=== PATIENT | female | born 1930 | race Caucasian/White ===

== ENCOUNTER 2019-09-25 06:20 | Inpatient (IN) | payer MEDICARE, BC ==
--- NOTE | 2019-09-25 06:39 | EDM.PDOC ---
<OzielJosue Gage - Last Filed: 09/25/19 06:50> ED HPI GENERAL MEDICAL PROBLEM - General Chief Complaint: Lower Extremity Injury/Pain Stated Complaint: [facility] Time Seen by Provider: 09/25/19 06:26 Source of Information: Reports: Patient History Limitations: Reports: Altered Mental Status (Dementia) - History of Present Illness INITIAL COMMENTS - FREE TEXT/NARRATIVE: Mrs. Gray is a pleasantly demented 89-year-old woman, a resident of [facility], who is brought to the ED by EMS after she apparently tripped and fell, injuring her right hip area. The patient is unable to tell us what time it occurred. She indicates that she has pain in her right buttock area , not the anterior or lateral hip. She does not recall actually falling, but agreed that she might have fallen backwards, onto her buttocks. No other apparent injury. EMS reported that the patient refused an IV or pain medication. Unfortunately, the patient has only been to this ED once, in 2013, and we therefore have no prior medical records on her. [facility] did not send any medical information with EMS, and due to the patient's dementia, she is unable to provide a meaningful past medical history. Aidee MAHER has contacted [facility], who will fax medical information to us. Right Pelvic Pain Score (Numeric/FACES): 6 - Related Data Allergies Allergy/AdvReac Type Severity Reaction Status Date / Time No Known Allergies Allergy Verified 09/25/19 06:35 Home Meds: Home Meds Acetaminophen [Tylenol Arthritis] 650 mg PO Q4HR PRN 09/25/19 [History] Aspirin [Low Dose Aspirin EC] 81 mg PO DAILY 09/25/19 [History] Calcium Carbonate/Vitamin D3 [Calcium 500 + Vit D 400] 1 tab PO DAILY 09/25/19 [ History] Carboxymethylcellulose Sodium [Refresh Tears 0.5%] 1 drop EYEBOTH BID 09/25/19 [ History] Diltiazem HCl [Cartia Xt] 120 mg PO DAILY 09/25/19 [History] Pravastatin [Pravachol] 20 mg PO DAILY 09/25/19 [History] Sennosides/Docusate Sodium [Senna Plus Tablet] 1 tab PO DAILY PRN 09/25/19 [ History] Past Medical History Neurological History: Reports: Other (See Below) (Dementia) ED EXAM, GENERAL - Physical Exam Exam: See Below Exam Limited By: No Limitations General Appearance: Alert, WD/WN, No Apparent Distress Eye Exam: Bilateral Eye: EOMI, Normal Inspection Ears: Normal External Exam, Hearing Loss Nose: Normal Inspection Throat/Mouth: Normal Inspection, Normal Lips, Normal Voice, No Airway Compromise Head: Atraumatic, Normocephalic Neck: Normal Inspection, Full Range of Motion Respiratory/Chest: No Respiratory Distress, Lungs Clear, Normal Breath Sounds, No Accessory Muscle Use Cardiovascular: Normal Peripheral Pulses, Regular Rate, Rhythm, No Edema, No Gallop, No JVD, No Murmur, No Rub Peripheral Pulses: 4+: Radial (L), Radial (R) GI/Abdominal: Normal Bowel Sounds, Soft, Non-Tender, No Organomegaly, No Distention, No Abnormal Bruit, No Mass (Female) Exam: Deferred Rectal (Female) Exam: Deferred Back Exam: Normal Inspection, Full Range of Motion, NT Extremities: No Pedal Edema, Normal Capillary Refill, Other (No visible abnormality to the patient's right hip, such as swelling, erythema, ecchymosis, abrasion, or deformity. The patient reports mild tenderness to palpation of the right buttock area, but no tenderness to palpation of the anterior lateral right hip. I was able to flex her right hip to about 90 - she reported some pain, but was able to tolerate the movement. She did not tolerate traction of the right lower extremity reporting pain radiating down her posterior right thigh. Her right lower extremity is not foreshortened compared to the left, and there is no external rotation. Neurovascular status of the right lower extremity is intact.) Neurological: Alert, No Motor/Sensory Deficits, Confused Psychiatric: Normal Affect Skin Exam: Warm, Dry, Intact, Normal Color, No Rash Course - Vital Signs Last Recorded V/S: Last Vital Signs Temp 36.9 C 09/25/19 06:26 Pulse 74 09/25/19 06:26 Resp 18 09/25/19 06:26 BP 158/78 H 09/25/19 06:26 Pulse Ox 85 L 09/25/19 06:26 - Orders/Labs/Meds Orders: Active Orders 24 hr Category Date Time Status EKG Documentation Completion [RC] STAT Care 09/25/19 07:38 Active Hip Min 2V or 3V w Pelvis Rt [CR] Stat Exams 09/25/19 06:31 Taken URINALYSIS W/MICROSCOPIC [UA W/MICROSCOPIC] [URIN] Stat Lab 09/25/19 07:38 Ordered Labs: Laboratory Tests 09/25/19 09/25/19 09/25/19 Range/Units 07:50 07:50 07:50 WBC 17.16 H (3.98-10.04) K/mm3 RBC 4.35 (3.98-5.22) M/mm3 Hgb 12.9 (11.2-15.7) gm/dl Hct 39.6 (34.1-44.9) % MCV 91.0 (79.4-94.8) fl MCH 29.7 (25.6-32.2) pg MCHC 32.6 (32.2-35.5) g/dl RDW Std Deviation 45.1 (36.4-46.3) fL Plt Count 265 (182-369) K/mm3 MPV 9.1 L (9.4-12.3) fl Neutrophils % (Manual) 86 H (40-60) % Band Neutrophils % 4 (0-10) % Lymphocytes % (Manual) 6 L (20-40) % Atypical Lymphs % 0 % Monocytes % (Manual) 3 (2-10) % Eosinophils % (Manual) 1 (0.7-5.8) % Basophils % (Manual) 0 L (0.1-1.2) Platelet Estimate Adequate RBC Morph Comment Normal Sodium 143 (136-145) mEq/L Potassium 3.3 L (3.5-5.1) mEq/L Chloride 105 (98-107) mEq/L Carbon Dioxide 27 (21-32) mEq/L Anion Gap 14.3 (5-15) BUN 51 H (7-18) mg/dL Creatinine 2.2 H (0.55-1.02) mg/dL Est Cr Clr Drug Dosing TNP Estimated GFR (MDRD) 21 (>60) mL/min BUN/Creatinine Ratio 23.2 H (14-18) Glucose 97 (83-115) mg/dL Calcium 9.5 (8.5-10.1) mg/dL Total Bilirubin 0.4 (0.2-1.0) mg/dL AST 31 (15-37) U/L ALT 37 (14-59) U/L Alkaline Phosphatase 60 (46-116) U/L Troponin I < 0.017 (0.00-0.056) ng/mL Total Protein 7.4 (6.4-8.2) g/dl Albumin 3.7 (3.4-5.0) g/dl Globulin 3.7 gm/dL Albumin/Globulin Ratio 1.0 (1-2) Meds: Medications Discontinued Medications Generic Name Dose Route Start Last Admin Trade Name Ronnie PRN Reason Stop Dose Admin Acetaminophen 650 mg 09/25/19 07:42 09/25/19 07:58 Tylenol PO 09/25/19 07:43 650 mg NOW ONE Administration - Re-Assessments/Exams Free Text/Narrative Re-Assessment/Exam: 09/25/19 06:32 I have ordered x-rays of the right hip and pelvis. 09/25/19 07:[address] Hearn, and care of the patient turned over to him at this time, for change of shift. Departure - Departure Disposition: Admitted As Inpatient 66 Clinical Impression: Fracture of right inferior pubic ramus - Discharge Information Referrals: PCP,Unknown [Primary Care Provider] - Forms: ED Department Discharge Sepsis Event Note - Focused Exam Vital Signs: Vital Signs Temp Pulse Resp BP Pulse Ox 09/25/19 06:26 36.9 C 74 18 158/78 H 85 L - My Orders Last 24 Hours: My Active Orders 09/25/19 07:38 EKG Documentation Completion [RC] STAT URINALYSIS W/MICROSCOPIC [UA W/MICROSCOPIC] [URIN] Stat - Assessment/Plan Last 24 Hours: My Active Orders 09/25/19 07:38 EKG Documentation Completion [RC] STAT URINALYSIS W/MICROSCOPIC [UA W/MICROSCOPIC] [URIN] Stat <Ousmane Hearn - Last Filed: 09/25/19 09:56> Review of Systems - Review of Systems Review Of Systems: See Below Constitutional: Reports: No Symptoms Eyes: Reports: No Symptoms Ears: Reports: No Symptoms Nose: Reports: No Symptoms Mouth/Throat: Reports: No Symptoms Respiratory: Reports: No Symptoms Cardiovascular: Reports: No Symptoms GI/Abdominal: Reports: No Symptoms Genitourinary: Reports: No Symptoms Musculoskeletal: Reports: No Symptoms Skin: Reports: No Symptoms Neurological: Reports: Other (She has pre-existing dementia) Psychiatric: Reports: No Symptoms EKG INTERPRETATION EKG Date: 09/25/19 Rhythm: NSR [place]: Normal P-Wave: Present QRS: Other (Service Writer with [facility]) ST-T: Other (Inverted T waves in lead aVL. LV strain type pattern) Comparison: NA - No Prior EKG EKG Interpretation Comments: Abnormal Course - Orders/Labs/Meds Labs: Laboratory Tests 09/25/19 09/25/19 09/25/19 Range/Units 07:50 07:50 07:50 WBC 17.16 H (3.98-10.04) K/mm3 RBC 4.35 (3.98-5.22) M/mm3 Hgb 12.9 (11.2-15.7) gm/dl Hct 39.6 (34.1-44.9) % MCV 91.0 (79.4-94.8) fl MCH 29.7 (25.6-32.2) pg MCHC 32.6 (32.2-35.5) g/dl RDW Std Deviation 45.1 (36.4-46.3) fL Plt Count 265 (182-369) K/mm3 MPV 9.1 L (9.4-12.3) fl Neutrophils % (Manual) 86 H (40-60) % Band Neutrophils % 4 (0-10) % Lymphocytes % (Manual) 6 L (20-40) % Atypical Lymphs % 0 % Monocytes % (Manual) 3 (2-10) % Eosinophils % (Manual) 1 (0.7-5.8) % Basophils % (Manual) 0 L (0.1-1.2) Platelet Estimate Adequate RBC Morph Comment Normal Sodium 143 (136-145) mEq/L Potassium 3.3 L (3.5-5.1) mEq/L Chloride 105 (98-107) mEq/L Carbon Dioxide 27 (21-32) mEq/L Anion Gap 14.3 (5-15) BUN 51 H (7-18) mg/dL Creatinine 2.2 H (0.55-1.02) mg/dL Est Cr Clr Drug Dosing TNP Estimated GFR (MDRD) 21 (>60) mL/min BUN/Creatinine Ratio 23.2 H (14-18) Glucose 97 (83-115) mg/dL Calcium 9.5 (8.5-10.1) mg/dL Total Bilirubin 0.4 (0.2-1.0) mg/dL AST 31 (15-37) U/L ALT 37 (14-59) U/L Alkaline Phosphatase 60 (46-116) U/L Troponin I < 0.017 (0.00-0.056) ng/mL Total Protein 7.4 (6.4-8.2) g/dl Albumin 3.7 (3.4-5.0) g/dl Globulin 3.7 gm/dL Albumin/Globulin Ratio 1.0 (1-2) Meds: Medications Discontinued Medications Generic Name Dose Route Start Last Admin Trade Name Freq PRN Reason Stop Dose Admin Acetaminophen 650 mg 09/25/19 07:42 09/25/19 07:58 Tylenol PO 09/25/19 07:43 650 mg NOW ONE Administration - Re-Assessments/Exams Free Text/Narrative Re-Assessment/Exam: 09/25/19 07:39 Assumed care at change of shift the patient is x-rays reviewed she has a right inferior ramus fracture. The patient has significant discomfort with any type of movement I don't think going back to the assisted living centers can work with her. I discussed patient's case with Dr. Sánchez orthopedics passenger car conductor who will consult on her. Case discussed with Dr. De León, hospitalist, who will admit we will check some baseline labs and EKG. I discussed situation with the patient's daughter the patient is a DNR. My own exam shows no pain with palpation of the skull and facial bones no evidence of injury. Palpation of the neck shows no bony tenderness no neck discomfort range of motion very reasonable. Palpation of the chest is unrevealing. Abdomen shows good bowel sounds soft nontender. Palpation of the extremities are unremarkable except for her right hip area. Departure - Departure Time of Disposition: 07:41 Sepsis Event Note - Focused Exam Vital Signs: Vital Signs Temp Pulse Resp BP Pulse Ox 09/25/19 06:26 36.9 C 74 18 158/78 H 85 L
[2019-09-25] MEDS ORDERED: Acetaminophen 325 MG Tab PO ONE (07:42)
--- NOTE | 2019-09-25 09:58 | CR ---
Pelvis and right hip: AP view of the pelvis was obtained as well as AP and lateral views of the right hip. Comparison: Previous right hip study of 10/17/13. Right hip prosthesis is seen. Components are aligned. Fracture is noted within the inferior right pubic ramus. Probable fracture at the junction of the acetabulum and superior right pubic ramus. Bony structures are osteopenic. Joint space of the left hip is preserved. No additional abnormality is seen. Impression: 1. Findings which are felt compatible with pubic rami fractures on the right side. 2. Osteopenia with prosthetic right hip. Diagnostic code #3 This report was dictated in [place] Standard Time
--- NOTE | 2019-09-25 12:29 | PCM.PN ---
- General Info Date of Service: 09/25/19 - Patient Data Vitals - Most Recent: Last Vital Signs Temp 97.5 F 09/25/19 10:43 Pulse 71 09/25/19 10:43 Resp 28 H 09/25/19 10:43 BP 178/96 H 09/25/19 10:43 Pulse Ox 90 L 09/25/19 10:43 Weight - Most Recent: 112 lb Lab Results Last 24 Hours: Laboratory Results - last 24 hr 09/25/19 09/25/19 09/25/19 Range/Units 07:50 07:50 07:50 WBC 17.16 H (3.98-10.04) K/mm3 RBC 4.35 (3.98-5.22) M/mm3 Hgb 12.9 (11.2-15.7) gm/dl Hct 39.6 (34.1-44.9) % MCV 91.0 (79.4-94.8) fl MCH 29.7 (25.6-32.2) pg MCHC 32.6 (32.2-35.5) g/dl RDW Std Deviation 45.1 (36.4-46.3) fL Plt Count 265 (182-369) K/mm3 MPV 9.1 L (9.4-12.3) fl Neutrophils % (Manual) 86 H (40-60) % Band Neutrophils % 4 (0-10) % Lymphocytes % (Manual) 6 L (20-40) % Atypical Lymphs % 0 % Monocytes % (Manual) 3 (2-10) % Eosinophils % (Manual) 1 (0.7-5.8) % Basophils % (Manual) 0 L (0.1-1.2) Platelet Estimate Adequate RBC Morph Comment Normal Sodium 143 (136-145) mEq/L Potassium 3.3 L (3.5-5.1) mEq/L Chloride 105 (98-107) mEq/L Carbon Dioxide 27 (21-32) mEq/L Anion Gap 14.3 (5-15) BUN 51 H (7-18) mg/dL Creatinine 2.2 H (0.55-1.02) mg/dL Est Cr Clr Drug Dosing TNP Estimated GFR (MDRD) 21 (>60) mL/min BUN/Creatinine Ratio 23.2 H (14-18) Glucose 97 (83-115) mg/dL Calcium 9.5 (8.5-10.1) mg/dL Total Bilirubin 0.4 (0.2-1.0) mg/dL AST 31 (15-37) U/L ALT 37 (14-59) U/L Alkaline Phosphatase 60 (46-116) U/L Troponin I < 0.017 (0.00-0.056) ng/mL Total Protein 7.4 (6.4-8.2) g/dl Albumin 3.7 (3.4-5.0) g/dl Globulin 3.7 gm/dL Albumin/Globulin Ratio 1.0 (1-2) Med Orders - Current: Current Medications Discontinued Medications Acetaminophen (Tylenol) 650 mg PO NOW ONE Stop: 09/25/19 07:43 Last Admin: 09/25/19 07:58 Dose: 650 mg Sepsis Event Note - Evaluation Sepsis Screening Result: No Definite Risk - Focused Exam Vital Signs: Vital Signs Temp Temp Pulse Pulse Resp BP BP 09/25/19 10:43 97.5 F 71 28 H 178/96 H 09/25/19 06:26 98.5 F 74 18 158/78 H Pulse Ox 09/25/19 10:43 90 L 09/25/19 06:26 85 L Date Exam was Performed: 09/25/19 Time Exam was Performed: 12:28 - My Orders Last 24 Hours: My Active Orders 09/25/19 11:45 Notify Provider Consults [RC] ASDIRECTED 09/25/19 11:57 Consult to Physician [CONS] Routine 09/25/19 12:08 Notify Provider Consults [RC] ASDIRECTED 09/25/19 12:24 Oxygen Therapy [RC] PRN Up With Assistance [RC] ASDIRECTED VTE/DVT Education [RC] PER UNIT ROUTINE Vital Signs [RC] Q4H OT Evaluation and Treatment [CONS] Routine PT Evaluation and Treatment [CONS] Routine Acetaminophen [Tylenol] 650 mg PO Q4H PRN Resuscitation Status Routine 09/25/19 12:26 Docusate Sodium/Sennosides [Senna Plus] 2 tab PO DAILY PRN 09/25/19 12:30 Diltiazem [Cardizem CD] 120 mg PO DAILY 09/25/19 21:00 Carboxymethylcellulose Sodium 1 drop EYEBOTH BID 12/10/19 Lunch Regular Diet [DIET] 09/26/19 05:11 CBC WITH AUTO DIFF [HEME] AM COMPREHENSIVE METABOLIC PN,CMP [CHEM] AM MAGNESIUM [CHEM] AM 09/26/19 09:00 Aspirin [Halfprin] 81 mg PO DAILY Enoxaparin [Lovenox] 30 mg SUBCUT DAILY Pravastatin 20 mg PO DAILY
[2019-09-25] MEDS: Acetaminophen 325 MG Tab PO PRN ×2 (12:46→17:08)
[2019-09-25] MEDS: Diltiazem 120 MG Cap.CD PO SCH (12:46)
--- NOTE | 2019-09-25 14:28 | PCM.HP.2 ---
H&P History of Present Illness - General Date of Service: 09/25/19 Admit Problem/Dx: Admission Diagnosis/Problem Admission Diagnosis/Problem Fracture of inferior pubic ramus - History of Present Illness Initial Comments - Free Text/Narative: 89-year-old female has advanced dementia, osteoporosis, hypertension, history of colon cancer, paroxysmal atrial fibrillation, and hyperlipidemia and is a resident of [facility] care facility was brought in by EMS after she apparently tripped and fell getting out of her chair. Patient was found down unable to get up or bear her own weight. Patient had no loss of consciousness, and did not hit her head. It was not witnessed though. Patient complained of right hip pain and was found to have right inferior pubic rami fracture as well as probable fracture at the junction of the acetabulum and superior right pubic ramus. Emergency room physician notified Dr. Sánchez an orthopedic surgeon and he felt this was a stable fracture and she should be admitted for physical therapy and pain management. Patient did refuse any pain medication in route from [facility]. Family does state that she has problems with sundowning. Emergency room studies: Pelvic x-ray showing right pubic rami fracture as well as possible fracture at the junction of the acetabulum and superior right pubic ramus. EKG showed normal sinus rhythm with ventricular rate of 76 bpm. Criteria met for left ventricular hypertrophy. LV strain pattern. Labs: WBC 17.1, hemoglobin 12.9, platelet count 265, sodium 143, potassium 3.3, chloride 105, carbon dioxide 27, anion gap 14.3, BUN 51, creatinine 2.2, troponin my less than 0.017, normal LFTs. Right Pelvic Pain Score (Numeric/FACES): 3 - Related Data Allergies/Adverse Reactions: Allergies Allergy/AdvReac Type Severity Reaction Status Date / Time No Known Allergies Allergy Verified 09/25/19 06:35 Home Medications: Home Meds Acetaminophen [Tylenol Extra Strength] 500 mg PO QID PRN 09/25/19 [History] Aspirin [Low Dose Aspirin EC] 81 mg PO DAILY 09/25/19 [History] Calcium Carbonate/Vitamin D3 [Calcium 500 + Vit D 400] 1 tab PO BID 09/25/19 [ History] Carboxymethylcellulose Sodium [Refresh Tears 0.5%] 1 drop EYEBOTH BID 09/25/19 [ History] Diltiazem HCl [Cartia Xt] 120 mg PO DAILY 09/25/19 [History] Pravastatin [Pravachol] 20 mg PO DAILY 09/25/19 [History] Sennosides/Docusate Sodium [Senna Plus Tablet] 2 tab PO DAILY PRN 09/25/19 [ History] Past Medical History HEENT History: Reports: Hard of Hearing, Impaired Vision Other HEENT History: wears glasses Cardiovascular History: Reports: Afib, High Cholesterol, Hypertension Respiratory History: Reports: Pneumonia, Recurrent Gastrointestinal History: Reports: None Genitourinary History: Reports: Other (See Below) Other Genitourinary History: wears pull up, per dtr uses restroom, patient denies incontinence 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: Musculoskeletal History: Reports: Arthritis, Back Pain, Chronic, Osteoporosis Neurological History: Reports: Other (See Below) Other Neuro History: dementia Psychiatric History: Reports: Dementia Oncologic (Cancer) History: Reports: Colon - Infectious Disease History Infectious Disease History: Reports: Chicken Pox, Measles - Past Surgical History HEENT Surgical History: Reports: Adenoidectomy, Cataract Surgery, Tonsillectomy GI Surgical History: Reports: Other (See Below) Other GI Surgeries/Procedures: colon cancer removal 30 yrs ago Female Surgical History: Reports: None Musculoskeletal Surgical History: Reports: Hip Replacement, Joint Replacement, Other (See Below) Other Musculoskeletal Surgeries/Procedures:: fracture to back many yres ago Dermatological Surgical History: Reports: Other (See Below) Social & Family History - Family History Family Medical History: Noncontributory - Tobacco Use Smoking Status *Q: Never Smoker - Caffeine Use Caffeine Use: Reports: None - Recreational Drug Use Recreational Drug Use: No H&P Review of Systems - Review of Systems: Review Of Systems: Unable To Obtain Reason Not Obtained: Confused Exam - Exam Exam: See Below - Vital Signs Vital Signs: Last Vital Signs Temp 97.5 F 09/25/19 10:43 Pulse 75 09/25/19 12:46 Resp 28 H 09/25/19 10:43 BP 178/57 H 09/25/19 12:46 Pulse Ox 96 09/25/19 12:08 Weight: 112 lb - Exam General: Alert HEENT: Conjunctiva Clear, EOMI, Mucosa Moist & [place] Neck: Supple, Trachea Midline, 2 Lungs: Clear to Auscultation, Normal Respiratory Effort Cardiovascular: Regular Rate, Regular Rhythm, Normal S1, Normal S2 GI/Abdominal Exam: Normal Bowel Sounds, Soft, Non-Tender, No Organomegaly, No Distention, No Abnormal Bruit Extremities: Normal Inspection, Normal Range of Motion, No Pedal Edema, Normal Capillary Refill Skin: Warm, Dry, Intact Neurological: Cranial Nerves Intact Neuro Extensive - Mental Status: Alert, Disorientation to Place, Disorientation to Time. No: Memory Intact Neuro Extensive - Motor, Sensory, Reflexes: CN II-XII Intact. No: Normal Gait Psychiatric: Alert, Agitated - Patient Data Lab Results Last 24 hrs: Laboratory Results - last 24 hr 09/25/19 09/25/19 09/25/19 Range/Units 07:50 07:50 07:50 WBC 17.16 H (3.98-10.04) K/mm3 RBC 4.35 (3.98-5.22) M/mm3 Hgb 12.9 (11.2-15.7) gm/dl Hct 39.6 (34.1-44.9) % MCV 91.0 (79.4-94.8) fl MCH 29.7 (25.6-32.2) pg MCHC 32.6 (32.2-35.5) g/dl RDW Std Deviation 45.1 (36.4-46.3) fL Plt Count 265 (182-369) K/mm3 MPV 9.1 L (9.4-12.3) fl Neutrophils % (Manual) 86 H (40-60) % Band Neutrophils % 4 (0-10) % Lymphocytes % (Manual) 6 L (20-40) % Atypical Lymphs % 0 % Monocytes % (Manual) 3 (2-10) % Eosinophils % (Manual) 1 (0.7-5.8) % Basophils % (Manual) 0 L (0.1-1.2) Platelet Estimate Adequate RBC Morph Comment Normal Sodium 143 (136-145) mEq/L Potassium 3.3 L (3.5-5.1) mEq/L Chloride 105 (98-107) mEq/L Carbon Dioxide 27 (21-32) mEq/L Anion Gap 14.3 (5-15) BUN 51 H (7-18) mg/dL Creatinine 2.2 H (0.55-1.02) mg/dL Est Cr Clr Drug Dosing TNP Estimated GFR (MDRD) 21 (>60) mL/min BUN/Creatinine Ratio 23.2 H (14-18) Glucose 97 (83-115) mg/dL Calcium 9.5 (8.5-10.1) mg/dL Total Bilirubin 0.4 (0.2-1.0) mg/dL AST 31 (15-37) U/L ALT 37 (14-59) U/L Alkaline Phosphatase 60 (46-116) U/L Troponin I < 0.017 (0.00-0.056) ng/mL Total Protein 7.4 (6.4-8.2) g/dl Albumin 3.7 (3.4-5.0) g/dl Globulin 3.7 gm/dL Albumin/Globulin Ratio 1.0 (1-2) Urine Color (Yellow) Urine Appearance (Clear) Urine pH (5.0-8.0) Ur Specific [place] (1.005-1.030) Urine Protein (Negative) Urine Glucose (UA) (Negative) Urine Ketones (Negative) Urine Occult Blood (Negative) Urine Nitrite (Negative) Urine Bilirubin (Negative) Urine Urobilinogen (0.2-1.0) Ur Leukocyte Esterase (Negative) 09/25/19 Range/Units 12:30 WBC (3.98-10.04) K/mm3 RBC (3.98-5.22) M/mm3 Hgb (11.2-15.7) gm/dl Hct (34.1-44.9) % MCV (79.4-94.8) fl MCH (25.6-32.2) pg MCHC (32.2-35.5) g/dl RDW Std Deviation (36.4-46.3) fL Plt Count (182-369) K/mm3 MPV (9.4-12.3) fl Neutrophils % (Manual) (40-60) % Band Neutrophils % (0-10) % Lymphocytes % (Manual) (20-40) % Atypical Lymphs % % Monocytes % (Manual) (2-10) % Eosinophils % (Manual) (0.7-5.8) % Basophils % (Manual) (0.1-1.2) Platelet Estimate RBC Morph Comment Sodium (136-145) mEq/L Potassium (3.5-5.1) mEq/L Chloride (98-107) mEq/L Carbon Dioxide (21-32) mEq/L Anion Gap (5-15) BUN (7-18) mg/dL Creatinine (0.55-1.02) mg/dL Est Cr Clr Drug Dosing Estimated GFR (MDRD) (>60) mL/min BUN/Creatinine Ratio (14-18) Glucose (83-115) mg/dL Calcium (8.5-10.1) mg/dL Total Bilirubin (0.2-1.0) mg/dL AST (15-37) U/L ALT (14-59) U/L Alkaline Phosphatase (46-116) U/L Troponin I (0.00-0.056) ng/mL Total Protein (6.4-8.2) g/dl Albumin (3.4-5.0) g/dl Globulin gm/dL Albumin/Globulin Ratio (1-2) Urine Color Yellow (Yellow) Urine Appearance Clear (Clear) Urine pH 6.5 (5.0-8.0) Ur Specific [place] 1.020 (1.005-1.030) Urine Protein 1+ H (Negative) Urine Glucose (UA) Negative (Negative) Urine Ketones Negative (Negative) Urine Occult Blood Negative (Negative) Urine Nitrite Negative (Negative) Urine Bilirubin Negative (Negative) Urine Urobilinogen 0.2 (0.2-1.0) Ur Leukocyte Esterase Negative (Negative) Result Diagrams: 09/25/19 07:50 09/25/19 07:50 Sepsis Event Note - Evaluation Sepsis Screening Result: No Definite Risk - Focused Exam Vital Signs: Vital Signs Temp Temp Pulse Pulse Resp BP BP 09/25/19 12:46 75 178/57 H 09/25/19 12:08 78 178/57 H 09/25/19 10:43 97.5 F 71 28 H 178/96 H 09/25/19 06:26 98.5 F 74 18 158/78 H Pulse Ox 09/25/19 12:46 09/25/19 12:08 96 09/25/19 10:43 90 L 09/25/19 06:26 85 L Date Exam was Performed: 09/25/19 Time Exam was Performed: 14:53 Problem List Initiated/Reviewed/Updated: Yes Orders Last 24hrs: Active Orders 24 hr Category Date Time Status Patient Status [ADT] Routine ADT 09/25/19 09:53 Active Oxygen Therapy [RC] PRN Care 09/25/19 12:24 Active Up With Assistance [RC] 10,22 Care 09/25/19 12:24 Active VTE/DVT Education [RC] PER UNIT ROUTINE Care 09/25/19 12:24 Active Vital Signs [RC] Q4H Care 09/25/19 12:24 Active Consult to Physician [CONS] Routine Cons 09/25/19 11:57 Active OT Evaluation and Treatment [CONS] Routine Cons 09/25/19 12:24 Active PT Evaluation and Treatment [CONS] Routine Cons 09/25/19 12:24 Active Regular Diet [DIET] Diet 09/25/19 Lunch Active CBC WITH AUTO DIFF [HEME] AM Lab 09/26/19 05:11 Ordered COMPREHENSIVE METABOLIC PN,CMP [CHEM] AM Lab 09/26/19 05:11 Ordered MAGNESIUM [CHEM] AM Lab 09/26/19 05:11 Ordered METH-RESIST S.AUR,MRSA BY PCR [MOLEC] Routine Lab 09/25/19 13:51 Ordered URINALYSIS W/MICROSCOPIC [UA W/MICROSCOPIC] [URIN] Stat Lab 09/25/19 12:30 Results Acetaminophen [Tylenol] Med 09/25/19 12:24 Active 650 mg PO Q4H PRN Aspirin [Halfprin] Med 09/26/19 09:00 Active 81 mg PO DAILY Carboxymethylcellulose Sodium [Refresh Liquigel 1%] Med 09/25/19 21:00 Active 0 ml EYEBOTH BID Diltiazem [Cardizem CD] Med 09/25/19 12:30 Active 120 mg PO DAILY Docusate Sodium/Sennosides [Senna Plus] Med 09/25/19 12:26 Active 2 tab PO DAILY PRN Enoxaparin [Lovenox] Med 09/26/19 09:00 Active 30 mg SUBCUT DAILY Potassium Chloride [KCl 10 MEQ in Water 100 ML] 10 meq Med 09/25/19 14:30 Ordered Premix Bag 1 bag IV Q1H Potassium Chloride [Klor-Con M20] Med 09/25/19 21:00 Once 20 meq PO ONETIME ONE Simvastatin [Zocor] Med 09/26/19 09:00 Active 10 mg PO DAILY Sodium Chloride 0.9% [Normal Saline] 1,000 ml Med 09/25/19 14:30 Ordered IV ASDIRECTED Weight bearing status [OM.PC] Routine Oth 09/25/19 13:35 Ordered Resuscitation Status Routine Resus Stat 09/25/19 12:24 Ordered Medication Orders Acetaminophen (Tylenol) 650 mg PO Q4H PRN PRN Reason: Pain (Mild 1-3)/fever Last Admin: 09/25/19 12:46 Dose: 650 mg Artificial Tears (Refresh Liquigel 1%) 0 ml EYEBOTH BID [facility]I Aspirin (Halfprin) 81 mg PO DAILY [facility] Diltiazem HCl (Cardizem Cd) 120 mg PO DAILY [facility]ORI Last Admin: 09/25/19 12:46 Dose: 120 mg Enoxaparin Sodium (Lovenox) 30 mg SUBCUT DAILY [facility] Potassium Chloride 10 meq/ (Premix) 100 mls @ 100 mls/hr IV Q1H [facility]ORI Stop: 09/25/19 16:29 Sodium Chloride (Normal Saline) 1,000 mls @ 100 mls/hr IV ASDIRECTED [facility] Potassium Chloride (Klor-Con M20) 20 meq PO ONETIME ONE Stop: 09/25/19 21:01 Senna/Docusate Sodium (Senna Plus) 2 tab PO DAILY PRN PRN Reason: Constipation Simvastatin (Zocor) 10 mg PO DAILY [facility] Assessment/Plan Comment:: Assessment * Right pubic rami fracture * Currently unable to weight-bear. * Dr. Sánchez consulted by emergency room. * He recommends physical therapy. She will need snf facility rehab stay to be able to return to ambulation. * Hypertension * Patient has not received her hypertensive medicines today * Acute versus chronic renal insufficiency. * Initial renal function BUN 51 and creatinine 2.2, estimated GFR 21 * Hypokalemia * Potassium 3.3 * Leukocytosis * WBC 17,000 * Likely stress response * Advanced dementia with history of sunding * History of paroxysmal atrial fibrillation, osteoporosis, hyperlipidemia, hypertension, and colon cancer Plan * Admit to [facility] on telemetry * Consult physical therapy * Avoid narcotics for pain management * Get old records and old labs * Start normal saline at 100 mL/h * Potassium chloride 10 mEq x 2 IV * Potassium chloride 20 mEq p.o. x1 tonight * Repeat CBC, CMP, and magnesium in the morning * No indication for antibiotics. Leukocytosis likely secondary to stress response. UA negative and no respiratory symptoms. * VTE prophylaxis with Lovenox * CODE STATUS: DNR/DNI * Like to stray 3 midnights so she can get into a snf facility - Mortality Measure Prognosis:: Good
[2019-09-25] MEDS: Potassium Chloride 10 MEQ in Premix Bag 1 BAG IV SCH ×2 (15:58→17:36)
[2019-09-25] MEDS: Sodium Chloride 0.9% 1,000 ML IV SCH (15:58)
[2019-09-25] MEDS: HYDROmorphone 0.5 MG/0.5 ML Syringe IVPUSH PRN ×2 (18:04→21:12)
[2019-09-25] MEDS: Carboxymethylcellulose Sodium 1% Ophth Gel 15 ML Bottle EYEBOTH SCH (20:49)
[2019-09-25] MEDS ORDERED: Potassium Chloride 20 MEQ Tab.ER PO ONE (21:00)
[2019-09-26] MEDS: Sodium Chloride 0.9% 1,000 ML IV SCH ×3 (02:37→21:52)
[2019-09-26] MEDS: HYDROmorphone 0.5 MG/0.5 ML Syringe IVPUSH PRN ×2 (03:39→08:43)
[2019-09-26] MEDS ORDERED: Magnesium Sulfate/Water 4 GM in Premix Bag 1 BAG IV ONE (08:30)
[2019-09-26] MEDS: Carboxymethylcellulose Sodium 1% Ophth Gel 15 ML Bottle EYEBOTH SCH ×2 (08:42→20:20)
[2019-09-26] MEDS: Enoxaparin 30 MG/0.3 ML Syringe SUBCUT SCH (08:42)
[2019-09-26] MEDS: Diltiazem 120 MG Cap.CD PO SCH (08:43)
[2019-09-26] MEDS: Aspirin 81 MG Tab.EC PO SCH (08:44)
[2019-09-26] MEDS: Simvastatin 10 MG Tab PO SCH (08:44)
[2019-09-26] MEDS ORDERED: Morphine 2 MG/ML Syringe IVPUSH PRN (10:04)
[2019-09-26] MEDS: Acetaminophen/Codeine 300-30 MG Tab PO PRN (11:10)
[2019-09-26] MEDS: Acetaminophen/HYDROcodone 325-5 MG Tab PO PRN ×2 (15:58→20:20)
--- NOTE | 2019-09-26 18:03 | PCM.PN ---
- General Info Date of Service: 09/26/19 Subjective Update: Did not sleep well due to pain tolerating Can't ambulate due to pain - Patient Data Vitals - Most Recent: Last Vital Signs Temp 97.9 F 09/26/19 04:06 Pulse 65 09/26/19 16:02 Resp 16 09/26/19 16:02 BP 136/50 L 09/26/19 16:02 Pulse Ox 95 09/26/19 16:02 Weight - Most Recent: 49.079 kg - Exam General: Alert, Cooperative, No Acute Distress HEENT: Pupils Equal, Pupils Reactive Neck: Supple, Trachea Midline, No JVD Lungs: Clear to Auscultation, Normal Respiratory Effort. No: Rub, Stridor, Wheezing Cardiovascular: Regular Rate, Regular Rhythm. No: Murmurs, Gallops, Rubs GI/Abdominal Exam: Normal Bowel Sounds, Soft, Non-Tender Psy/Mental Status: Normal Affect, Normal Mood Sepsis Event Note - Evaluation Sepsis Screening Result: No Definite Risk - Focused Exam Vital Signs: Vital Signs Pulse Resp BP Pulse Ox Pulse Ox 09/26/19 16:02 65 16 136/50 L 95 09/26/19 13:27 64 16 145/65 H 96 09/26/19 12:24 97 09/26/19 12:16 64 16 132/52 L 97 09/26/19 09:13 79 93 L 09/26/19 08:43 86 154/65 H 89 L 09/26/19 08:42 85 16 154/65 H 85 L Date Exam was Performed: 09/26/19 Time Exam was Performed: 18:26 - Problem List & Annotations (1) Fracture of right inferior pubic ramus SNOMED Code(s): 064245694 Code(s): S32.591A - OTH FRACTURE OF RIGHT PUBIS, INIT ENCNTR FOR CLOSED FRACTURE Status: Acute Current Visit: Yes (2) Acute kidney failure SNOMED Code(s): 70641379 Code(s): N17.9 - ACUTE KIDNEY FAILURE, UNSPECIFIED Status: Acute Current Visit: Yes (3) Chronic kidney disease (CKD), stage V SNOMED Code(s): 579409734 Code(s): N18.5 - CHRONIC KIDNEY DISEASE, STAGE 5 Status: Acute Current Visit: Yes (4) Leukocytosis SNOMED Code(s): 560786354, 871849622 Code(s): D72.829 - ELEVATED WHITE BLOOD CELL COUNT, UNSPECIFIED Status: Acute Current Visit: Yes (5) Fall SNOMED Code(s): 9583396, 245497160 Code(s): W19.XXXA - UNSPECIFIED FALL, INITIAL ENCOUNTER Status: Acute Current Visit: Yes (6) Paroxysmal atrial fibrillation SNOMED Code(s): 798881129 Code(s): I48.0 - PAROXYSMAL ATRIAL FIBRILLATION Status: Acute Current Visit: Yes (7) Hypertension SNOMED Code(s): 55650706 Code(s): I10 - ESSENTIAL (PRIMARY) HYPERTENSION Status: Acute Current Visit: Yes - Problem List Review Problem List Initiated/Reviewed/Updated: Yes - Plan Plan:: Fracture of right inferior pubic ramus 2/[address] Sánchez consulted by emergency room--> recommends physical therapy -MILD:Tylenol with Codeine No.3 300MG/30MG, 1 tab PO Q4H PRN -MODERATE: Acetaminophen/Hydrocodone 325-5 MG, 1 tab PO Q4H PRN -SEVERE: Morphine 2 mg IV Q4H PRN -Naproxen 375 mg PO Q12HR PRN PT and OT on board PLAN - Change in pain regimen today - Pending placement, needs 3 midnights - Scheduled docusate/senna Acute kidney failure Chronic kidney disease (CKD), stage V GFR unable to calculate on admission Improved today PLAN - Renally dosed medications - Avoid nephrotoxic medications - Monitor urine output - Repeat labs and adjustments as necessary Paroxysmal atrial fibrillation, CHADS VASC- 4 HR trend 60-78 Home management with Diltiazem PLAN - Continue home Diltiazem Hypertension BP trend 148-178/57-96 Pain has not been controlled PLAN - Reconcile home medications - PRN Hydralazine Advanced dementia No delirium PLAN - Let me sleep protocol Hypokalemia, resolved Acute kidney failure, resolved PROPHYLAXIS: DVT- Lovenox GI- not indicated CODE STATUS: DNR-DNI DISPOSITION: Patient admitted to medical floor for pain control, PT and OT evaluation ans assessment. Discharge recommendations are for SNF, pending to complete 3 midnights.
[2019-09-27] MEDS: Acetaminophen/Codeine 300-30 MG Tab PO PRN ×3 (07:53→20:05)
[2019-09-27] MEDS: Sodium Chloride 0.9% 1,000 ML IV SCH (07:54)
[2019-09-27] MEDS: Diltiazem 120 MG Cap.CD PO SCH (08:28)
[2019-09-27] MEDS: Simvastatin 10 MG Tab PO SCH (08:29)
[2019-09-27] MEDS: Carboxymethylcellulose Sodium 1% Ophth Gel 15 ML Bottle EYEBOTH SCH ×2 (08:29→20:04)
[2019-09-27] MEDS: Enoxaparin 30 MG/0.3 ML Syringe SUBCUT SCH ×2 (08:29→14:10)
[2019-09-27] MEDS: Aspirin 81 MG Tab.EC PO SCH (08:29)
--- NOTE | 2019-09-27 13:48 | CONS ---
CONSULTING PHYSICIAN: Primo Sánchez MD DATE OF CONSULTATION: 09/25/2019 HISTORY OF PRESENT ILLNESS: This is an 89-year-old female, who is a resident of the [facility] who was brought in by the emergency room after apparently she tripped and fell injuring her right hip area. The patient is unable to put weight on that side. She had a previous right hip endoprosthesis from femoral neck fracture. She states it hurts in her buttocks region as well as in her groin. She was unable to ambulate right away. She does not really remember falling. The patient, otherwise, denies any injury or pain or problems at this time. OBJECTIVE: GENERAL: The patient is lying in bed. She is in no acute distress while lying in bed. EXTREMITIES: She is able move her upper extremities without difficulty. Examination of the lower extremities: She does have positive pain with lateral compression of the pelvis. No pain with AP compression. No instability is noted. She is unable to do a single straight leg raise. She has no pain or tenderness about her right knee. Neurovascularly, she is intact distally to the medial, plantar, first dorsal webspace with 2+ distal pulses. RADIOGRAPHS: Reviewed showing minimally to nondisplaced superior and inferior pubic rami fractures of the right side with no SI joint widening. ASSESSMENT: Stable right pubic rami fractures. PLAN: At this time, I did discuss with them that this is usually inherently stable fracture. They do cause significant pain at the beginning, which does cause significant decrease in ambulation. As they start to heal, it causes less pain. But at this point, she can weightbear as tolerated with a walker with physical therapy and will more than likely need placement secondary to her weakness in the future. We will plan on seeing the patient in 2 weeks with repeat radiographs in our clinic in 2 weeks' time. MMODAL /[id number]
--- NOTE | 2019-09-27 15:27 | PCM.PN ---
- General Info Date of Service: 09/27/19 Subjective Update: Slept better Pain is controlled Walking with PT BM 09/25 - Patient Data Vitals - Most Recent: Last Vital Signs Temp 97.7 F 09/27/19 12:08 Pulse 65 09/27/19 12:19 Resp 20 09/27/19 12:08 BP 138/50 L 09/27/19 12:08 Pulse Ox 91 L 09/27/19 12:19 Weight - Most Recent: 49.85 kg - Exam Physical Findings Comments:: General: Alert, Cooperative, No Acute Distress HEENT: Pupils Equal, Pupils Reactive Neck: Supple, Trachea Midline, No JVD Lungs: Clear to Auscultation, Normal Respiratory Effort. No: Rub, Stridor, Wheezing Cardiovascular: Regular Rate, Regular Rhythm. No: Murmurs, Gallops, Rubs GI/Abdominal Exam: Normal Bowel Sounds, Soft, Non-Tender Psy/Mental Status: Normal Affect, Normal Mood Sepsis Event Note - Evaluation Sepsis Screening Result: No Definite Risk - Focused Exam Vital Signs: Vital Signs Temp Pulse Resp BP Pulse Ox 09/27/19 12:19 65 91 L 09/27/19 12:08 97.7 F 66 20 138/50 L 91 L 09/27/19 08:28 72 154/70 H 09/27/19 08:25 72 16 154/70 H 89 L 09/27/19 08:23 97.3 F 69 16 172/108 H 91 L 09/27/19 03:46 97.9 F 52 L 16 125/54 L 98 Date Exam was Performed: 09/27/19 Time Exam was Performed: 15:53 - Problem List & Annotations (1) Fracture of right inferior pubic ramus SNOMED Code(s): 335350416 Code(s): S32.591A - OTH FRACTURE OF RIGHT PUBIS, INIT ENCNTR FOR CLOSED FRACTURE Status: Acute Current Visit: Yes (2) Acute kidney failure SNOMED Code(s): 17095371 Code(s): N17.9 - ACUTE KIDNEY FAILURE, UNSPECIFIED Status: Acute Current Visit: Yes (3) Chronic kidney disease (CKD), stage V SNOMED Code(s): 119915058 Code(s): N18.5 - CHRONIC KIDNEY DISEASE, STAGE 5 Status: Acute Current Visit: Yes (4) Leukocytosis SNOMED Code(s): 903118823, 486818207 Code(s): D72.829 - ELEVATED WHITE BLOOD CELL COUNT, UNSPECIFIED Status: Acute Current Visit: Yes (5) Fall SNOMED Code(s): 2351638, 923429844 Code(s): W19.XXXA - UNSPECIFIED FALL, INITIAL ENCOUNTER Status: Acute Current Visit: Yes (6) Paroxysmal atrial fibrillation SNOMED Code(s): 951874854 Code(s): I48.0 - PAROXYSMAL ATRIAL FIBRILLATION Status: Acute Current Visit: Yes (7) Hypertension SNOMED Code(s): 76672905 Code(s): I10 - ESSENTIAL (PRIMARY) HYPERTENSION Status: Acute Current Visit: Yes - Problem List Review Problem List Initiated/Reviewed/Updated: Yes - Plan Plan:: Fracture of right inferior pubic ramus 2/[address] Sánchez consulted by emergency room--> recommends physical therapy -MILD:Tylenol with Codeine No.3 300MG/30MG, 1 tab PO Q4H PRN -MODERATE: Acetaminophen/Hydrocodone 325-5 MG, 1 tab PO Q4H PRN -SEVERE: Morphine 2 mg IV Q4H PRN -Naproxen 375 mg PO Q12HR PRN PT and OT on board PLAN - Continue current pain regimen - Pending placement, needs 3 midnights - Scheduled docusate/senna Acute kidney failure Chronic kidney disease (CKD), stage V GFR unable to calculate on admission Continues to improve PLAN - Renally dosed medications - Avoid nephrotoxic medications - Monitor urine output - Repeat labs and adjustments as necessary Paroxysmal atrial fibrillation, CHADS VASC- 4 HR trend 64-85x' Home management with Diltiazem PLAN - Continue home Diltiazem Hypertension BP trend 112-154/50-65 Pain has not been controlled PLAN - Reconcile home medications - PRN Hydralazine Advanced dementia No delirium PLAN - Let me sleep protocol Hypokalemia, resolved Acute kidney failure, resolved PROPHYLAXIS: DVT- Lovenox GI- not indicated CODE STATUS: DNR-DNI DISPOSITION: Patient admitted to medical floor for pain control, PT and OT evaluation and assessment. PT recommending SNF. 2 pivot assist, walked 10ft. Discharge recommendations are for SNF, pending to complete 3 midnights.
[2019-09-28] MEDS: Simvastatin 10 MG Tab PO SCH (08:11)
[2019-09-28] MEDS: Diltiazem 120 MG Cap.CD PO SCH (08:11)
[2019-09-28] MEDS: Enoxaparin 30 MG/0.3 ML Syringe SUBCUT SCH (08:12)
[2019-09-28] MEDS: Aspirin 81 MG Tab.EC PO SCH (08:12)
[2019-09-28] MEDS: Carboxymethylcellulose Sodium 1% Ophth Gel 15 ML Bottle EYEBOTH SCH (08:13)
[2019-09-28] MEDS: Acetaminophen/Codeine 300-30 MG Tab PO PRN ×2 (09:49→15:05)
[2019-09-28] MEDS ORDERED: amLODIPine 5 MG Tab PO ONE (11:00)
--- NOTE | 2019-09-28 13:45 | PCM.DCSUM1 ---
Discharge Summary - Hospital Course HPI Initial Comments: 89-year-old female has advanced dementia, osteoporosis, hypertension, history of colon cancer, paroxysmal atrial fibrillation, and hyperlipidemia and is a resident of [facility] facility was brought in by EMS after she apparently tripped and fell getting out of her chair. Patient was found down unable to get up or bear her own weight. No loss of consciousness, and did not hit her head. Complained of right hip pain and was found to have right inferior pubic rami fracture as well as probable fracture at the junction of the acetabulum and superior right pubic ramus. Diagnosis: Stroke: No - Discharge Data Discharge Date: 09/28/19 Discharge Disposition: DC/Tfer to [facility] Condition: Good - Referral to Home Health Date of Face to Face Encounter: 09/28/19 Reason for Homebound Status: Face to Face meeting with pt and or family. Pt has right inferior public ramus fracture, HTN, Acute kidney failure, chronic kidney disease stage V, Hypokalemia, Leukocytosis, advanced dementia with sun downing. Pt is in need Home Health Care services for; functional mobility training, balance training, gait training, therapeutic activity and therapeutic exercises. Nursing for pain management, vitals, skilled assessment, and pain control. Physical therapy for pt for balance training, gait training, therapeutic activity and therapeutic exercises. Occupational therapy for ADL training, functional mobility training, therapeutic activities, and therapeutic exercises. Pt is currently homebound due to needing assist of two for ambulation. Pt will be followed by his primary provider. Primary Care Physician: PCP Not In Area - Discharge Diagnosis/Problem(s) (1) Fracture of right inferior pubic ramus SNOMED Code(s): 319886045 ICD Code: S32.591A - OTH FRACTURE OF RIGHT PUBIS, INIT ENCNTR FOR CLOSED FRACTURE Status: Acute Current Visit: Yes (2) Acute kidney failure SNOMED Code(s): 02571155 ICD Code: N17.9 - ACUTE KIDNEY FAILURE, UNSPECIFIED Status: Resolved Current Visit: Yes (3) Chronic kidney disease (CKD), stage V SNOMED Code(s): 349225845 ICD Code: N18.5 - CHRONIC KIDNEY DISEASE, STAGE 5 Status: Acute Current Visit: Yes (4) Leukocytosis SNOMED Code(s): 698571974, 316048629 ICD Code: D72.829 - ELEVATED WHITE BLOOD CELL COUNT, UNSPECIFIED Status: Acute Current Visit: Yes (5) Fall SNOMED Code(s): 8265766, 331074345 ICD Code: W19.XXXA - UNSPECIFIED FALL, INITIAL ENCOUNTER Status: Acute Current Visit: Yes (6) Paroxysmal atrial fibrillation SNOMED Code(s): 022035447 ICD Code: I48.0 - PAROXYSMAL ATRIAL FIBRILLATION Status: Acute Current Visit: Yes (7) Hypertension SNOMED Code(s): 31515829 ICD Code: I10 - ESSENTIAL (PRIMARY) HYPERTENSION Status: Acute Current Visit: Yes - Patient Summary/Data Consults: Consultations 09/25/19 11:57 Consult to Physician [CONS] Routine 09/25/19 12:24 OT Evaluation and Treatment [CONS] Routine PT Evaluation and Treatment [CONS] Routine Hospital Course: Patient complained of right hip pain and was found to have right inferior pubic rami fracture as well as probable fracture at the junction of the acetabulum and superior right pubic ramus. Emergency room physician notified Dr. Sánchez an orthopedic surgeon and he felt this was a stable fracture and she should be admitted for physical therapy and pain management. Patient did refuse any pain medication in route from [facility]. Family does state that she has problems with sundowning. Emergency room studies: Pelvic x-ray showing right pubic rami fracture as well as possible fracture at the junction of the acetabulum and superior right pubic ramus. Admitted for pain control and physical therapy. Unable to work with physical therapy due to pain, pain regimen adjusted and patient was able to ambulate up to 50ft. Bp was on high side during admission, even after pain was controlled for which she was started on amlodipine 5mg QD. Being discharged on [place] and Tylenol #3 - Patient Instructions Diet: Usual Diet as Tolerated, Drink 8-10+ Glasses/Day Activity: As Tolerated - Discharge Plan Prescriptions/Med Rec: Acetaminophen/Codeine [Tylenol with Codeine No.3 300MG/30MG] 1 tab PO Q4H PRN # 14 tablet PRN Reason: Pain (Moderate 4-6) Acetaminophen/HYDROcodone [[place] 325-5 MG] 1 tab PO Q4H PRN #10 tablet PRN Reason: Pain (Severe 7-10) Sennosides/Docusate Sodium [Senna Plus Tablet] 1 tab PO BID #12 tablet Home Medications: Home Meds Aspirin [Low Dose Aspirin EC] 81 mg PO DAILY 09/25/19 [History] Calcium Carbonate/Vitamin D3 [Calcium 500 + Vit D 400] 1 tab PO BID 09/25/19 [ History] Diltiazem HCl [Cartia Xt] 120 mg PO DAILY 09/25/19 [History] Acetaminophen/Codeine [Tylenol with Codeine No.3 300MG/30MG] 1 tab PO Q4H PRN # 14 tablet 09/28/19 [Rx] Acetaminophen/HYDROcodone [[place] 325-5 MG] 1 tab PO Q4H PRN #10 tablet 09/28/19 [Rx] Sennosides/Docusate Sodium [Senna Plus Tablet] 1 tab PO BID #12 tablet 09/28/19 [Rx] Oxygen Therapy Mode: Room Air Forms: ED Department Discharge Referrals: Ashu Abrams MD [Physician] - - Discharge Summary/Plan Comment DC Time >30 min.: Yes - General Info Date of Service: 09/28/19 Subjective Update: Pain is controlled Tolerating diet but eating little amounts Ambulating with pt , up to 50ft BM this AM - Patient Data Vitals - Most Recent: Last Vital Signs Temp 97.9 F 09/28/19 11:51 Pulse 74 09/28/19 11:51 Resp 16 09/28/19 11:51 BP 168/70 H 09/28/19 12:00 Pulse Ox 91 L 09/28/19 11:51 Weight - Most Recent: 49.351 kg I&O - Last 24 hours: Intake & Output 09/27/19 09/28/19 09/28/19 22:59 06:59 14:59 Intake Total 650 400 Output Total 750 Balance 650 -350 Lab Results - Last 24 hrs: Laboratory Results - last 24 hr 09/28/19 09/28/19 Range/Units 05:22 05:22 WBC 10.47 H (3.98-10.04) K/mm3 RBC 3.65 L (3.98-5.22) M/mm3 Hgb 10.7 L (11.2-15.7) gm/dl Hct 33.6 L (34.1-44.9) % MCV 92.1 (79.4-94.8) fl MCH 29.3 (25.6-32.2) pg MCHC 31.8 L (32.2-35.5) g/dl RDW Std Deviation 47.2 H (36.4-46.3) fL Plt Count 196 (182-369) K/mm3 MPV 9.7 (9.4-12.3) fl Neut % (Auto) 83.4 H (34.0-71.1) % Lymph % (Auto) 6.9 L (19.3-51.7) % [place] % (Auto) 6.9 (4.7-12.5) % Eos % (Auto) 2.3 (0.7-5.8) Baso % (Auto) 0.1 (0.1-1.2) % Neut # (Auto) 8.74 H (1.56-6.13) K/mm3 Lymph # (Auto) 0.72 L (1.18-3.74) K/mm3 [place] # (Auto) 0.72 H (0.24-0.36) K/mm3 Eos # (Auto) 0.24 (0.04-0.36) K/mm3 Baso # (Auto) 0.01 (0.01-0.08) K/mm3 Manual Slide Review Abnormal smear Sodium 143 (136-145) mEq/L Potassium 3.8 (3.5-5.1) mEq/L Chloride 108 H (98-107) mEq/L Carbon Dioxide 24 (21-32) mEq/L Anion Gap 14.8 (5-15) BUN 32 H (7-18) mg/dL Creatinine 1.7 H (0.55-1.02) mg/dL Est Cr Clr Drug Dosing 17.48 mL/min Estimated GFR (MDRD) 28 (>60) mL/min BUN/Creatinine Ratio 18.8 H (14-18) Glucose 94 (83-115) mg/dL Calcium 7.7 L (8.5-10.1) mg/dL Phosphorus 2.1 L (2.6-4.7) mg/dL Magnesium 2.2 (1.8-2.4) mg/dl Med Orders - Current: Current Medications Acetaminophen (Tylenol) 650 mg PO Q4H PRN PRN Reason: Pain (Mild 1-3)/fever Last Admin: 09/25/19 17:08 Dose: 650 mg Acetaminophen/Codeine Phosphate (Tylenol With Codeine No.3 300mg/30mg) 1 tab PO Q4H PRN PRN Reason: Pain (moderate 4-6) Last Admin: 09/28/19 09:49 Dose: 1 tab Hydrocodone Bitart/Acetaminophen ([place] 325-5 Mg) 1 tab PO Q4H PRN PRN Reason: Pain (severe 7-10) Last Admin: 09/26/19 20:20 Dose: 1 tab Artificial Tears (Refresh Liquigel 1%) 0 ml EYEBOTH BID [facility] Last Admin: 09/28/19 08:13 Dose: Not Given Aspirin (Halfprin) 81 mg PO DAILY [facility] Last Admin: 09/28/19 08:12 Dose: 81 mg Diltiazem HCl (Cardizem Cd) 120 mg PO DAILY [facility] Last Admin: 09/28/19 08:11 Dose: 120 mg Enoxaparin Sodium (Lovenox) 30 mg SUBCUT DAILY [facility] Last Admin: 09/28/19 08:12 Dose: 30 mg Morphine Sulfate (Morphine) 2 mg IVPUSH Q4H PRN PRN Reason: Pain (severe 7-10) Naproxen (Naprosyn) 375 mg PO Q12HR PRN PRN Reason: Pain Last Admin: 09/27/19 07:53 Dose: 375 mg Senna/Docusate Sodium (Senna Plus) 2 tab PO DAILY PRN PRN Reason: Constipation Senna/Docusate Sodium (Senna Plus) 1 tab PO BID [facility] Last Admin: 09/28/19 08:10 Dose: 1 tab Simvastatin (Zocor) 10 mg PO DAILY [facility] Last Admin: 09/28/19 08:11 Dose: 10 mg Discontinued Medications Acetaminophen (Tylenol) 650 mg PO NOW ONE Stop: 09/25/19 07:43 Last Admin: 09/25/19 07:58 Dose: 650 mg Amlodipine Besylate (Norvasc) 5 mg PO ONETIME ONE Stop: 09/28/19 11:01 Last Admin: 09/28/19 10:59 Dose: 5 mg Hydromorphone HCl (Dilaudid) 0.25 mg IVPUSH Q2H PRN PRN Reason: Pain (severe 7-10) Last Admin: 09/26/19 08:43 Dose: 0.25 mg Potassium Chloride 10 meq/ (Premix) 100 mls @ 100 mls/hr IV Q1H LORI Stop: 09/25/19 16:29 Last Admin: 09/25/19 17:36 Dose: 75 mls/hr Sodium Chloride (Normal Saline) 1,000 mls @ 100 mls/hr IV ASDIRECTED LORI Last Admin: 09/27/19 07:54 Dose: 100 mls/hr Magnesium Sulfate 4 gm/ Premix 100 mls @ 25 mls/hr IV ONETIME ONE Stop: 09/26/19 12:29 Last Admin: 09/26/19 08:41 Dose: 25 mls/hr Potassium Chloride (Klor-Con M20) 20 meq PO ONETIME ONE Stop: 09/25/19 21:01 Last Admin: 09/25/19 20:48 Dose: 20 meq - Exam Physical Findings Comments:: General: Alert, Cooperative, No Acute Distress HEENT: Pupils Equal, Pupils Reactive Neck: Supple, Trachea Midline, No JVD Lungs: Clear to Auscultation, Normal Respiratory Effort. No: Rub, Stridor, Wheezing Cardiovascular: Regular Rate, Regular Rhythm. No: Murmurs, Gallops, Rubs GI/Abdominal Exam: Normal Bowel Sounds, Soft, Non-Tender Psy/Mental Status: Normal Affect, Normal Mood
[2019-09-29] MEDS ORDERED: amLODIPine 5 MG Tab PO SCH (09:00)
== END 2019-09-28 15:08 | DRG 535 ==
LOC: JD.ED 06:20 → JD.MS 09:53
PROVIDERS: ADMIT Family Medicine; ATTEND Family Medicine
DX: S32.501A Unspecified fracture of right pubis, initial encounter for closed fracture (principal); W01.0XXA Fall on same level from slipping, tripping and stumbling without subsequent striking against object, initial encounter; S32.591A Other specified fracture of right pubis, initial encounter for closed fracture; H91.90 Unspecified hearing loss, unspecified ear; S32.401A Unspecified fracture of right acetabulum, initial encounter for closed fracture; N17.9 Acute kidney failure, unspecified; N18.5 Chronic kidney disease, stage 5; I12.0 Hypertensive chronic kidney disease with stage 5 chronic kidney disease or end stage renal disease; E87.6 Hypokalemia; I48.0 Paroxysmal atrial fibrillation; Z66 Do not resuscitate; M81.0 Age-related osteoporosis without current pathological fracture; F03.90 Unspecified dementia, unspecified severity, without behavioral disturbance, psychotic disturbance, mood disturbance, and anxiety; E78.5 Hyperlipidemia, unspecified; E78.00 Pure hypercholesterolemia, unspecified; M19.90 Unspecified osteoarthritis, unspecified site; D72.829 Elevated white blood cell count, unspecified; W01.10XA Fall on same level from slipping, tripping and stumbling with subsequent striking against unspecified object, initial encounter; Z96.649 Presence of unspecified artificial hip joint; Z85.038 Personal history of other malignant neoplasm of large intestine; Z87.01 Personal history of pneumonia (recurrent); Z79.82 Long term (current) use of aspirin; Z79.899 Other long term (current) drug therapy; Z98.49 Cataract extraction status, unspecified eye; Z90.89 Acquired absence of other organs; Y92.099 Unspecified place in other non-institutional residence as the place of occurrence of the external cause
CPT/HCPCS: 36415; 73502; 80053; 84484; 85007; 85027; 93005; 99285; A9270; 80048; 81001; 83735; 84100; 85025; 87641; 93010; 97110-GO; 97110-GP; 97116-GP; 97162-GP; 97165-GO; 97530-GO; 97530-GP; 97535-GO; 99283; J1170; J1650; J3475; J3480; J7030

== ENCOUNTER 2019-10-03 14:41 | Emergency (ER) | payer MEDICARE, BC ==
--- NOTE | 2019-10-03 15:11 | EDM.PDOC ---
ED HPI GENERAL MEDICAL PROBLEM - General Chief Complaint: Upper Extremity Injury/Pain Stated Complaint: LT WRIST INJURY Time Seen by Provider: 10/03/19 15:05 Source of Information: Reports: Patient, Other ([employer]) History Limitations: Reports: No Limitations - History of Present Illness INITIAL COMMENTS - FREE TEXT/NARRATIVE: Patient's unfortunately 9-year-old female who presents today with complaint of left wrist pain. Patient reports she was in her normal state of health until approximately prior to arrival when she was tending to stand out of her wheelchair leaning forward to set a cup down and lost her balance tripped and fell forward onto her left hand patient has deformity to left wrist distal neurovascular is intact at this time Left Wrist Pain Score (Numeric/FACES): 8 - Related Data Allergies Allergy/AdvReac Type Severity Reaction Status Date / Time No Known Allergies Allergy Verified 09/25/19 06:35 Home Meds: Home Meds Aspirin [Low Dose Aspirin EC] 81 mg PO DAILY 09/25/19 [History] Calcium Carbonate/Vitamin D3 [Calcium 500 + Vit D 400] 1 tab PO BID 09/25/19 [ History] Diltiazem HCl [Cartia Xt] 120 mg PO DAILY 09/25/19 [History] Acetaminophen/Codeine [Tylenol with Codeine No.3 300MG/30MG] 1 tab PO Q4H PRN # 14 tablet 09/28/19 [Rx] Naproxen 250 mg PO BID PRN #14 tablet 09/28/19 [Rx] Sennosides/Docusate Sodium [Senna Plus Tablet] 1 tab PO BID #12 tablet 09/28/19 [Rx] amLODIPine [Norvasc] 5 mg PO DAILY #30 tablet 09/28/19 [Rx] Acetaminophen with Codeine [Tylenol with Codeine #3 Tablet] 1 each PO Q4H PRN # 12 tablet 10/03/19 [Rx] Past Medical History HEENT History: Reports: Hard of Hearing, Impaired Vision Other HEENT History: wears glasses Cardiovascular History: Reports: Afib, High Cholesterol, Hypertension Respiratory History: Reports: Pneumonia, Recurrent Gastrointestinal History: Reports: None Genitourinary History: Reports: Other (See Below) Other Genitourinary History: wears pull up, per dtr uses restroom, patient denies incontinence [employer]PER[employer]OR History: Reports: Musculoskeletal History: Reports: Arthritis, Back Pain, Chronic, Osteoporosis Neurological History: Reports: Other (See Below) Other Neuro History: dementia Psychiatric History: Reports: Dementia Oncologic (Cancer) History: Reports: Colon - Infectious Disease History Infectious Disease History: Reports: Chicken Pox, Measles - Past Surgical History HEENT Surgical History: Reports: Adenoidectomy, Cataract Surgery, Tonsillectomy GI Surgical History: Reports: Other (See Below) Other GI Surgeries/Procedures: colon cancer removal 30 yrs ago Female Surgical History: Reports: None Musculoskeletal Surgical History: Reports: Hip Replacement, Joint Replacement, Other (See Below) Other Musculoskeletal Surgeries/Procedures:: fracture to back many yres ago Dermatological Surgical History: Reports: Other (See Below) Social & Family History - Family History Family Medical History: Noncontributory - Caffeine Use Caffeine Use: Reports: None Review of Systems - Review of Systems Review Of Systems: See Below Constitutional: Denies: Chills Eyes: Denies: Inflammation, Vision Change Musculoskeletal: Reports: Joint Pain ED EXAM, GENERAL - Physical Exam Exam: See Below Exam Limited By: No Limitations General Appearance: Alert, WD/WN, Mild Distress Neck: Normal Inspection, Supple, Non-Tender, Full Range of Motion Respiratory/Chest: No Respiratory Distress, Lungs Clear, Normal Breath Sounds, No Accessory Muscle Use, Chest Non-Tender Cardiovascular: Normal Peripheral Pulses, Regular Rate, Rhythm, No Edema, No Gallop, No JVD, No Murmur, No Rub GI/Abdominal: Normal Bowel Sounds, Soft, Non-Tender, No Organomegaly, No Distention, No Abnormal Bruit, No Mass Extremities: Joint Swelling (Deformity left wrist distal neurovascular is intact ), Arm Pain Neurological: Alert Skin Exam: Warm, Dry, No Rash Course - Vital Signs Last Recorded V/S: Last Vital Signs Temp 97.6 F 10/03/19 15:04 Pulse 70 10/03/19 15:04 Resp 20 10/03/19 15:04 BP 157/58 H 10/03/19 15:04 Pulse Ox 96 10/03/19 15:04 - Orders/Labs/Meds Orders: Active Orders 24 hr Category Date Time Status Notify Provider [RC] ASDIRECTED Care 10/03/19 17:21 Active Oxygen Therapy [RC] ASDIRECTED Care 10/03/19 17:21 Active Pulse Oximetry [RC] ASDIRECTED Care 10/03/19 17:21 Active Vital Signs [RC] Q15M Care 10/03/19 17:21 Active Meds: Medications Discontinued Medications Generic Name Dose Route Start Last Admin Trade Name Ronnie PRN Reason Stop Dose Admin Fentanyl Confirm 10/03/19 16:36 Sublimaze Administered 10/03/19 16:37 Dose 100 mcg .ROUTE .STK-MED ONE Lidocaine HCl Confirm 10/03/19 16:36 Xylocaine-Mpf 1% Administered 10/03/19 16:37 Dose 6 mls @ as directed .ROUTE .STK-MED ONE Sodium Chloride Confirm 10/03/19 16:36 Normal Saline Administered 10/03/19 16:37 Dose 1,000 mls @ as directed .ROUTE .STK-MED ONE Ketamine HCl Confirm 10/03/19 16:37 Ketalar Administered 10/03/19 16:38 Dose 500 mg .ROUTE .STK-MED ONE Midazolam HCl Confirm 10/03/19 17:05 Versed 1 Mg/Ml Administered 10/03/19 17:06 Dose 2 mg .ROUTE .STK-MED ONE Propofol Confirm 10/03/19 16:36 Diprivan 20 Ml Administered 10/03/19 16:37 Dose 200 mg .ROUTE .STK-MED ONE - Re-Assessments/Exams Free Text/Narrative Re-Assessment/Exam: 10/03/19 17:33 Patient has displaced Daniel fracture left wrist is with Dr. Sánchez A presented to the emergency department and with assistance of anesthesia reduced the fracture in the emergency department is good alignment in a sugar tong splint was placed by Dr. Sánchez Free Text/Narrative Re-Assessment/Exam: 10/03/19 17:35 Of note, patient has inferior and superior pubic rami fractures on the right hip Free Text/Narrative Re-Assessment/Exam: 10/03/19 19:30 Patient has sufficient recovered from anesthesia is alert oriented and talking will discharge to home Departure - Departure Time of Disposition: 19:31 Disposition: Home, Self-Care 01 Clinical Impression: Colles' fracture of left radius, initial encounter for closed fracture Pelvic fracture Qualifiers: Encounter type: sequela Pelvic bone location: unspecified part of pelvis Fracture type: closed Fracture alignment: nondisplaced Qualified Code(s): S32.9XXS - Fracture of unspecified parts of lumbosacral spine and pelvis, sequela - Discharge Information Prescriptions: Acetaminophen with Codeine [Tylenol with Codeine #3 Tablet] 1 each PO Q4H PRN # 12 tablet PRN Reason: Pain Instructions: Forearm Fracture, [id number] Referrals: PCP,Unknown [Primary Care Provider] - Forms: ED Department Discharge Additional Instructions: Home, rest, ice, elevate wear sling, touchdown weightbearing to right lower extremity, follow-up with Dr. Sánchez as directed, return as needed for worsening condition Sepsis Event Note - Evaluation Sepsis Screening Result: No Definite Risk - Focused Exam Vital Signs: Vital Signs Temp Pulse Resp BP Pulse Ox 10/03/19 15:04 97.6 F 70 20 157/58 H 96 Date Exam was Performed: 10/03/19 Time Exam was Performed: 19:30
--- NOTE | 2019-10-03 16:26 | PCM.PREANE ---
Preanesthetic Assessment - Anesthesia/Transfusion/Family Hx Anesthesia History: Prior Anesthesia Without Reaction Family History of Anesthesia Reaction: No Transfusion History: No Prior Transfusion(s) Intubation History: Unknown - Review of Systems General: No Symptoms Pulmonary: No Symptoms Cardiovascular: No Symptoms (HTN, Paroxysmal A-fibrillation, elevated cholesterol), Dyspnea on Exertion Gastrointestinal: No Symptoms (History of colon cancer-colectomy over 20 years ago.), Constipation, Other Neurological: No Symptoms Other: Reports: None (Dementia, Kidney disease with elevated BUN, Cr, and decreased GFR.) - Physical Assessment NPO Status Date: 10/03/19 NPO Status Time: 12:00 Vital Signs: Last Vital Signs Temp 36.4 C 10/03/19 15:04 Pulse 70 10/03/19 15:04 Resp 20 10/03/19 15:04 BP 157/58 H 10/03/19 15:04 Pulse Ox 96 10/03/19 15:04 Height: 1.68 m Weight: 50.576 kg ASA Class: 3E Mental Status: Alert & Oriented x3 Airway Class: Mallampati = 2 Dentition: Reports: Normal Dentition, Caries Thyro-Mental Finger Breadths: 3 Mouth Opening Finger Breadths: 3 ROM/Head Extension: Full Lungs: Clear to Auscultation, Normal Respiratory Effort Cardiovascular: Regular Rate, Regular Rhythm, No Murmurs - Lab Values: All labs reviewed and noted and within acceptable ranges to proceed with procedure. - Allergies Allergies/Adverse Reactions: Allergies Allergy/AdvReac Type Severity Reaction Status Date / Time No Known Allergies Allergy Verified 09/25/19 06:35 - Anesthesia Plan Pre-Op Medication Ordered: None - Acknowledgements Anesthesia Type Planned: MAC Pt an Appropriate Candidate for the Planned Anesthesia: Yes Alternatives and Risks of Anesthesia Discussed w Pt/Guardian: Yes Pt/Guardian Understands and Agrees with Anesthesia Plan: Yes PreAnesthesia Questionnaire HEENT History: Reports: Hard of Hearing, Impaired Vision Other HEENT History: wears glasses Cardiovascular History: Reports: Afib, High Cholesterol, Hypertension Respiratory History: Reports: Pneumonia, Recurrent Gastrointestinal History: Reports: None Genitourinary History: Reports: Other (See Below) Other Genitourinary History: wears pull up, per dtr uses restroom, patient denies incontinence [employer]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: Musculoskeletal History: Reports: Arthritis, Back Pain, Chronic, Osteoporosis Neurological History: Reports: Other (See Below) Other Neuro History: dementia Psychiatric History: Reports: Dementia Oncologic (Cancer) History: Reports: Colon - Infectious Disease History Infectious Disease History: Reports: Chicken Pox, Measles - Past Surgical History HEENT Surgical History: Reports: Adenoidectomy, Cataract Surgery, Tonsillectomy GI Surgical History: Reports: Other (See Below) Other GI Surgeries/Procedures: colon cancer removal 30 yrs ago Female Surgical History: Reports: None Musculoskeletal Surgical History: Reports: Hip Replacement, Joint Replacement, Other (See Below) Other Musculoskeletal Surgeries/Procedures:: fracture to back many yres ago Dermatological Surgical History: Reports: Other (See Below) - SUBSTANCE USE Smoking Status *Q: Never Smoker Recreational Drug Use History: No - HOME MEDS Home Medications: Home Meds Aspirin [Low Dose Aspirin EC] 81 mg PO DAILY 09/25/19 [History] Calcium Carbonate/Vitamin D3 [Calcium 500 + Vit D 400] 1 tab PO BID 09/25/19 [ History] Diltiazem HCl [Cartia Xt] 120 mg PO DAILY 09/25/19 [History] Acetaminophen/Codeine [Tylenol with Codeine No.3 300MG/30MG] 1 tab PO Q4H PRN # 14 tablet 09/28/19 [Rx] Naproxen 250 mg PO BID PRN #14 tablet 09/28/19 [Rx] Sennosides/Docusate Sodium [Senna Plus Tablet] 1 tab PO BID #12 tablet 09/28/19 [Rx] amLODIPine [Norvasc] 5 mg PO DAILY #30 tablet 09/28/19 [Rx]
[2019-10-03] MEDS ORDERED: Lidocaine 1% 6 ML ONE (16:36)
[2019-10-03] MEDS ORDERED: Propofol 200 MG/20 ML SDV ONE (16:36)
[2019-10-03] MEDS ORDERED: fentaNYL 100 MCG/2 ML SDV ONE (16:36)
[2019-10-03] MEDS ORDERED: Sodium Chloride 0.9% 1,000 ML ONE (16:36)
[2019-10-03] MEDS ORDERED: Ketamine 500 mg/10 ML MDV ONE (16:37)
[2019-10-03] MEDS ORDERED: Midazolam 1 MG/ML 2 ML SDV ONE (17:05)
--- NOTE | 2019-10-03 17:15 | CR ---
Left wrist: Two views of the left wrist were obtained. Comparison: No previous wrist study. Distal radial and ulnar fractures are noted. Distal radial fracture is displaced posteriorly as well as angulated posteriorly. Soft tissue swelling is noted. Osteopenia is present. Impression: 1. Distal radial and ulnar fractures as noted above. 2. Soft tissue swelling. Diagnostic code #3 This report was dictated in [place] Standard Time
--- NOTE | 2019-10-03 17:15 | CR ---
Pelvis and right hip: AP view of the pelvis was obtained as well as AP and lateral views of the right hip. Stable fracture is seen within the inferior and superior pubic rami. No callus is appreciated. Right hip prosthesis is noted. Mild joint space narrowing is seen within the left hip. Osteoporosis is noted. No other acute finding is otherwise seen. Impression: 1. Stable inferior and superior pubic rami fractures on the right side. 2. Other findings as noted above. Diagnostic code #3 This report was dictated in [place] Standard Time
--- NOTE | 2019-10-03 17:20 | PCM48HPAN ---
Post Anesthesia Note - EVALUATION WITHIN 48HRS OF ANESTHETIC Vital Signs in Normal Range: Yes Patient Participated in Evaluation: Yes Respiratory Function Stable: Yes Airway Patent: Yes Cardiovascular Function Stable: Yes Hydration Status Stable: Yes Pain Control Satisfactory: Yes Nausea and Vomiting Control Satisfactory: Yes Mental Status Recovered: Yes Vital Signs: Last Vital Signs Temp 36.4 C 10/03/19 15:04 Pulse 70 10/03/19 15:04 Resp 20 10/03/19 15:04 BP 157/58 H 10/03/19 15:04 Pulse Ox 96 10/03/19 15:04
--- NOTE | 2019-10-03 17:58 | CR ---
Left wrist: Two views of the left wrist were obtained. Comparison: Prior left wrist study performed earlier in same day (3:24 PM). Displaced distal radial fracture shows improved improved alignment compatible with interval reduction. Ulnar fracture also shows better alignment. Plaster cast is in place. Degenerative change is noted within the CMC joint of the thumb. Impression: 1. Improved alignment of previous fractures with plaster cast in place. 2. Incidental degenerative change. Diagnostic code #2 This report was dictated in [place] Standard Time
--- NOTE | 2019-10-04 16:01 | OR ---
DATE OF OPERATION: 10/03/2019 SURGEON: Primo Sánchez MD OPERATION PERFORMED: Closed reduction and splinting of left distal radius and ulnar fracture. PREOPERATIVE DIAGNOSIS: Displaced left distal radius and ulnar fracture. POSTOPERATIVE DIAGNOSIS: Displaced left distal radius and ulnar fracture. ANESTHESIA: MAC sedation. TAILINGS MAN: None. ANESTHESIA PROVIDER: Lise Escalante CRNA. ESTIMATED BLOOD LOSS: Not applicable. COMPLICATIONS: None. CONDITION: Stable. DESCRIPTION OF PROCEDURE: The patient was identified in the [facility]. At this time, consent was obtained from the daughters. Proper site was identified. At this time, after adequate sedation and a closed reduction maneuver was done to the left distal radius. There was audible and palpable reduction of the left distal radius. At this time, a well-padded sugar-tong splint was applied. An Diego wrap was applied. Three-point mold was then held. Radiographs showed shortening of the left distal radius but otherwise significantly improved alignment. At this time, the patient was placed in a sling and will follow up in clinic in a couple of weeks' time. MMODAL /[id number]
--- NOTE | 2019-10-04 16:22 | CONS ---
CONSULTING PHYSICIAN: Primo Sánchez MD DATE OF CONSULTATION: 10/03/2019 HISTORY OF PRESENT ILLNESS: This is an 89-year-old right-hand dominant female who sustained a pelvic fracture on the right side. She has been wheelchair bound. [place]. She subsequently was trying to lean over to set a glass down, fell and landed on the left upper extremity. The patient subsequently had an obvious deformity and was brought to the emergency department. She was found to have a left distal radius and ulnar fracture. We were consulted for possible reduction secondary to knowing patient from the pelvis fracture previously. Denies any previous pain or injury to left upper extremity before this happened. OBJECTIVE: Patient is alert. She is in no acute distress while in the [facility]. She does have obvious deformity as well as ecchymosis noted about the left wrist. She is able to move all fingers. She is neurovascularly intact to the radial, ulnar, median nerve distribution. She has no elbow tenderness or deformity or pain. RADIOGRAPHS: Reviewed showing a severely displaced and shortened left distal radius and ulnar fracture. PLAN: At this time, I did discuss with the family that at this point I would not recommend surgical option, but I would recommend trying a closed reduction in the [facility] and doing a long-arm splint. Patient subsequently will be placed in a short-arm cast in clinic in roughly 1 to 2 weeks. Daughters at this time are in agreement with this plan. Risks, benefits, complications, and alternatives were discussed, and please see the operative report for the procedure. At this time, patient will follow up in clinic in a couple weeks' time with repeat radiographs through the splint and then possibly do a short-arm cast versus a long-arm cast at that time. MMODAL /[id number]
== END 2019-10-03 20:00 | disposition home or self-care (01) ==
LOC: JD.ED 14:41
DX: S52.532A Colles' fracture of left radius, initial encounter for closed fracture (principal); S52.602A Unspecified fracture of lower end of left ulna, initial encounter for closed fracture; S32.591A Other specified fracture of right pubis, initial encounter for closed fracture; I10 Essential (primary) hypertension; E78.00 Pure hypercholesterolemia, unspecified; I48.91 Unspecified atrial fibrillation; Z79.899 Other long term (current) drug therapy; Z79.82 Long term (current) use of aspirin; W01.0XXA Fall on same level from slipping, tripping and stumbling without subsequent striking against object, initial encounter
CPT/HCPCS: 25605; 73100; 73110; 73502; 99152; 99153; 99283; J2001; J2250; J2704; J3010; J7030; 99284